=== PATIENT | male | born 1940 | race Caucasian/White ===

== ENCOUNTER 2016-12-13 00:54 | Emergency (ER) | payer MEDICARE ==
[~2016-12-13] VITALS: Ht 167.6 cm; Wt 75.0 kg
--- NOTE | 2016-12-13 01:03 | ED.REPORT ---
HPI- Male Date of Service Dec 13, 2016 ED Provider: Dr. Harrison 76 y/o male with a 16 Johnson catheter and a hx of [place] (stent placement), HTN, enlarged prostate and TIA (on Plavix and Aspirin) presents to the ED via airlift complaining of hematuria, onset 2 hours ago. The pt states he had slightly dark blood most of the day but it got significantly worse a couple of hours ago when he switched his overnight bag with the leg bag. Denies trauma or displacement of the bag or Johnson. Nursing Notes Stated Complaint: BLEEDING FROM CATHETER Nursing Notes Reviewed: Yes Allergies: Coded Allergies: No Known Allergies (Unverified , 12/13/16) Scheduled Cefuroxime Axetil (Cefuroxime) 500 Mg Tablet 500 MG PO BID General Time Seen by MD: 01:03 Chief Complaint Blood in urine Hx Obtained From: Patient Arrived By: Helicopter Onset Occurred: 1 - 4 hours ago Symptom Duration: Since onset Severity: Current: No pain currently Severity: Maximum: No pain Recent Healthcare: Recent doctor visit Similar Sx Previous: No Past Medical History Past Medical History - [place] (on Plavix and Aspirin) - HTN - Enlarged prostate - TIA Past Surgical History none reported Smoking History Unknown if Ever Smoker Ambulatory Status Independent Review of Systems Male: Reports Hematuria Complete sys rev & neg: except as marked. Physical Exam Initial Vital Signs Vital Signs (First) Date Time Temp Pulse Resp B/P Pulse Ox O2 Delivery O2 Flow Rate FiO2 12/13/16 01:11 36.3 73 14 160/67 96 Room Air Initial VS: Reviewed Neck: Supple, Non-tender, Full range of motion Respiratory: Breath sounds normal, Clear to auscultation, No respiratory distress Cardiovascular: Regular rate & rhythm, Heart sounds normal, Intact distal pulses Abdomen / GI: Soft, Non-tender Extremities: Vascular intact, Neuro intact, No swelling, No tenderness Skin: Warm, Dry, No cyanosis Neurologic: Alert, Oriented, Nonfocal MALE () Draining bloody urine in the johnson. 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 Interpretation & Diagnostics Lab Results Interpretation Result Diagram: 12/13/16 0126 12/13/16 0126 Test 12/13/16 01:25 12/13/16 01:26 Urine Color Bloody (YELLOW) Urine Appearance Cloudy (CLEAR,HAZY) Urine pH 7.0 (5.0-8.0) Urine Specific Skipwith 1.025 (1.003-1.035) Urine Protein 100mg/dL (NEG,TRACE) Urine Glucose (UA) Negativemg/dL (NEGATIVE) Urine Ketones Negativemg/dL (NEGATIVE) Urine Occult Blood Large (NEGATIVE) Urine Nitrite Positive (NEGATIVE) Urine Bilirubin Negative (NEGATIVE) Urine Urobilinogen Normalmg/dL (NORMAL) Urine Leukocyte Esterase Large (NEGATIVE) Urine RBC >50/hpf (0-2) Urine WBC >50/hpf (0-5) Urine Epithelial Cells Occasional/hpf (NONE-MOD) Urine Crystals None seen (NONE SEEN) Urine Bacteria Many/hpf (NONE-FEW) Urine Hyaline Casts None/lpf (NONE) Urine Granular Casts None seen (NONE SEEN) Urine Waxy Casts None seen (NONE SEEN) Urine Red Blood Cell Casts None seen (NONE SEEN) Urine White Blood Cell Casts None seen (NONE SEEN) Urine Mucus None seen (None Seen) Urine Trichomonas None seen (NONE SEEN) Urine Yeast None (NONE SEEN) Urinalysis Comment None Urine Culture Reflexed Indicated White Blood Count 9.5th/mm3 (3.8-10.1) Red Blood Count 5.09mil/mm3 (4.40-5.80) Hemoglobin 15.4g/dL (13.8-17.2) Hematocrit 45.8% (41.0-50.0) Mean Corpuscular Volume 90.0fL (81-100) Mean Corpuscular Hemoglobin 30.3pg (27.0-35.0) Mean Corpuscular Hemoglobin Concent 33.6% (32.0-37.0) Red Cell Distribution Width 13.5% (12.3-15.4) Platelet Count 286bil/L (150-400) Neutrophils (%) (Auto) 73.2% (40-74) Lymphocytes (%) (Auto) 15.4% (14-46) Monocytes (%) (Auto) 8.6% (4-12) Eosinophils (%) (Auto) 2.2% (0-5) Basophils (%) (Auto) 0.4% (0-3) Prothrombin Time 10.1sec (8.1-12.5) Prothromb Time International Ratio 0.95ratio Activated Partial Thromboplast Time 29.6sec (22.8-33.0) Sodium Level 139mEq/L (134-144) Potassium Level 3.7mEq/L (3.5-5.2) Chloride Level 105mEq/L (97-108) Carbon Dioxide Level 21mmol/L (18-29) Blood Urea Nitrogen 18mg/dL (8-27) Creatinine 0.93mg/dL (0.76-1.27) Estimat Glomerular Filtration Rate 84mL/min (>59) Glucose Level 103mg/dL (60-99) Calcium Level 8.5mg/dL (8.5-10.1) Total Bilirubin 0.3mg/dL (0.0-1.2) Aspartate Amino Transf (AST/SGOT) 16U/L (0-50) Alanine Aminotransferase (ALT/SGPT) 17U/L (0-44) Alkaline Phosphatase 43U/L (25-160) Total Protein 6.3g/dL (6.4-8.4) Albumin 3.6g/dL (3.4-5.0) Hold Nino Top Tube Received (Received) ECG Interpretation ECG Interpretation: Normal sinus rhythm. Rate 64. Time: 01:03 Interpreted by: ED physician ECG Interpretation: Normal sinus rhythm. Rate 67. Borderline prolonged WA interval. Old anteroseptal infarct. Time: 01:25 Interpreted by: ED physician Re-Eval/Medical Decision Med Decision/Clinical Course 76-year-old with ayesha hematuria resisting Johnson catheter for exam urinary tract infection by UA. Begin with Rocephin and ultimately Ceftin for outpatient use. He will need investigation further to evaluate and exclude other sources of urinary bleeding, but for now, bleeding is relatively minimal, hemoglobin is stable, and he does have definitive UTI. Discharged in stable condition with Ceftin as above. Follow up with PCP. Follow-up with urology. Re-Evaluation/Progress : Time of Eval: 03:02 Patient Status: Condition improved Re-Evaluation/Progress Note: Rechecked pt. Discussed lab results, imaging results, diagnosis and plan to discharge. Pt understands and agrees with the plan. F/U instructions and RTER warning given. All questions addressed. Counseled Regarding: Diagnosis, Lab results, Need for follow-up, When/why to return to ED Discharge & Departure Impression: Primary Impression: Hematuria Additional Impression: UTI (urinary tract infection) due to urinary indwelling catheter Indwelling urinary catheter type: indwelling urethral catheter Encounter type : initial encounter Qualified Code: T83.511A - Infection and inflammatory reaction due to indwelling urethral catheter, initial encounter Disposition: Home Discharge Condition All VS Reviewed: Yes Condition: Stable Patient Instructions: Johnson Catheter Placement and Care (ED), Hematuria (ED), Urinary Tract Infection in Men (DC) Additional Instructions: Take Ceftin twice daily for ten days. Drink plenty of fluids and maintain urine flow. Follow-up with your doctor in the office. Follow-up with Dr. Shelton as planned. Referrals: Escobar Shelton MD, Charles V MD Scribe Attestation Portions of this note were transcribed by Johanna Novak. I, , personally performed the history, physical exam and medical decision- making;I reviewed and confirmed the accuracy of the information in the transcribed note. Signed by Cezar Rivas. 12/13/16 04:07 copies to: Escobar Shelton MD; Pedro Mohamud MD, Christopher W MD Dec 13, 2016 01:03 Johanna Novak Dec 13, 2016 01:39
[2016-12-13 01:11] VITALS: BP 160/67; PULSE 73; RESP 14; O2SAT 96
[2016-12-13 01:33] LABS: BASOPHILS % (AUTO) 0.4 % (0-3); EOSINOPHILS % (AUTO) 2.2 % (0-5); MONOCYTES % (AUTO) 8.6 % (4-12); Mean Corpuscular Hemoglobin 30.3 pg (27.0-35.0); NEUTROPHILS % (AUTO) 73.2 % (40-74); Platelet Count 286 bil/L (150-400)
[2016-12-13 01:44] LABS: APPEARANCE,URINE CLOUDY (CLEAR,HAZY); COLOR,URINE BLOODY (YELLOW)
[2016-12-13 01:45] LABS: OCCULT BLOOD,URINE LARGE (NEGATIVE); UROBILINOGEN,URINE NORMAL (NORMAL)
[2016-12-13 01:49] LABS: INR 0.95 ratio
[2016-12-13] MEDS ORDERED: cefTRIAXone Inj 2,000 MG in Dextrose 5% Minibag Plus 50 ML IV ONE (02:05)
[2016-12-13] MEDS ORDERED: CEFU500T61 PO (03:09)
[2016-12-13 03:10] VITALS: BP 158/64; PULSE 78; RESP 14; O2SAT 97
[2016-12-13 07:14] VITALS: BP 152/68; PULSE 82; RESP 14; O2SAT 97
== END 2016-12-13 03:12 | disposition home or self-care (01) ==
LOC: EDBD 00:54 → SED 00:54
DX: T83.511A Infection and inflammatory reaction due to indwelling urethral catheter, initial encounter (principal); N39.0 Urinary tract infection, site not specified; B96.5 Pseudomonas (aeruginosa) (mallei) (pseudomallei) as the cause of diseases classified elsewhere; B95.61 Methicillin susceptible Staphylococcus aureus infection as the cause of diseases classified elsewhere; Y84.6 Urinary catheterization as the cause of abnormal reaction of the patient, or of later complication, without mention of misadventure at the time of the procedure; Y93.89 Activity, other specified; Y92.9 Unspecified place or not applicable; Y99.8 Other external cause status; I10 Essential (primary) hypertension; I25.2 Old myocardial infarction; N40.1 Benign prostatic hyperplasia with lower urinary tract symptoms; Z86.73 Personal history of transient ischemic attack (TIA), and cerebral infarction without residual deficits; Z95.5 Presence of coronary angioplasty implant and graft; Z79.82 Long term (current) use of aspirin; Z79.01 Long term (current) use of anticoagulants
CPT/HCPCS: 36415; 80053; 81000; 85025; 85610; 85730; 86850; 87077; 87086; 87088; 87186; 93005; 96365; 99284; J0696